=== PATIENT | male | born 1955 | race Caucasian/White ===

== ENCOUNTER 2017-02-17 09:48 | Inpatient (IN) | payer OTHER ==
[2017-02-17 10:56] VITALS: BMI 27.7
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
[2017-02-17] MEDS ORDERED: ACETAMINOPHEN 325 MG TABLET (FP) PO PRN (11:43)
[2017-02-17] MEDS ORDERED: MAGNESIUM HYDROX 2400MG/30ML ORAL SUSPENSION 30 ML CUP PO PRN (11:43)
[2017-02-17] MEDS ORDERED: hydrOXYzine PAMOATE 25 MG CAPSULE (FP) PO PRN (11:43)
[2017-02-17] MEDS ORDERED: MENTHOL/PHENOL 1 EACH UD MM PRN (11:43)
[2017-02-17] MEDS ORDERED: MAG HYDROX/AL HYDROX/SIMETH 30 ML UNIT-DOSE CUP PO PRN (11:43)
[2017-02-17] MEDS ORDERED: guaiFENesin/D-METHORPHAN HB 10 ML UNIT-DOSE CUPS PO PRN (11:43)
[2017-02-17] MEDS ORDERED: P-EPHED 60MG/TRIPROLIDI 2.5MG TABLET PO PRN (11:43)
[2017-02-17] MEDS ORDERED: diphenhydrAMINE HCL 50 MG CAPSULE PO PRN (11:43)
[2017-02-17] MEDS ORDERED: IBUPROFEN 400 MG TABLET (FP) PO PRN (11:43)
[2017-02-17] MEDS ORDERED: LOPERAMIDE HCL 2 MG CAPSULE PO PRN (11:43)
[2017-02-17] MEDS ORDERED: MAGNESIUM CITRATE 300 ML BOTTLE PO PRN (11:43)
[2017-02-17] MEDS ORDERED: chlordiazePOXIDE HCL 25 MG CAPSULE PO ONE (11:55)
[2017-02-17] MEDS ORDERED: METHADONE HCL 10 MG TABLET (FOR DETOX USE ONLY) PO ONE ×2 (11:56→23:00)
[2017-02-17] MEDS: chlordiazePOXIDE HCL 25 MG CAPSULE PO SCH ×2 (17:15→22:17)
[2017-02-17 17:34] LABS: URINE APPEARANCE CLEAR; URINE BILIRUBIN NEGATIVE (NEGATIVE); URINE BLOOD NEGATIVE (NEGATIVE); URINE COLOR DKYELLOW; URINE GLUCOSE (UA) NEGATIVE (NEGATIVE); URINE KETONE TRACE (NEGATIVE); URINE LEUK ESTERASE NEGATIVE (NEGATIVE); URINE NITRITE NEGATIVE (NEGATIVE); URINE PROTEIN NEGATIVE (NEGATIVE); URINE UROBILINOGEN 4.0 E.U/dl E.U./dl (0.2-1.0)
[2017-02-17] MEDS: chlordiazePOXIDE HCL 25 MG CAPSULE PO PRN (20:13)
[2017-02-17] MEDS: THIAMINE HCL 100 MG TABLET (FP) PO SCH (22:17)
[2017-02-18] MEDS: chlordiazePOXIDE HCL 25 MG CAPSULE PO SCH ×4 (05:36→22:13)
[2017-02-18] MEDS ORDERED: METHADONE HCL 10 MG TABLET (FOR DETOX USE ONLY) PO SCH (10:00)
[2017-02-18] MEDS: PRENATAL VITAMINS W/ FOLIC ACID TABLET (FP) PO SCH (10:03)
[2017-02-18 10:06] LABS: MCH 31.6 pg (25.7-33.7); MCHC 33.1 g/dl (32.0-35.9); MEAN CELL VOLUME 95.3 fl (80-96); MEAN PLT VOLUME 8.9 fl (7.5-11.1); PLATELET COUNT 197 K/MM3 (134-434); RDW 13.7 % (11.9-15.9)
[2017-02-18 10:29] LABS: ALBUMIN 3.6 g/dl (3.4-5.0); ALK PHOS 133 U/L (45-117); ANION GAP 13 (8-16); BILIRUBIN,TOTAL 0.8 mg/dL (0.2-1.0); CALCIUM 8.5 mg/dL (8.5-10.1); CO2 26 mmol/L (21-32); COCKROFT - GAULT 119.19; CREATININE 0.7 mg/dL (0.7-1.3); GLUCOSE,RANDOM 140 mg/dL (74-106); SGOT/AST 91 U/L (15-37); SGPT/ALT 112 U/L (12-78); TOT PROT 7.7 g/dl (6.4-8.2)
--- NOTE | 2017-02-18 11:42 | PN ---
[facility] CIWA - CIWA Score Nausea/Vomitin-No Nausea/No Vomiting Muscle Tremors: 4-Moderate,w/Arms Extend Anxiety: 4-Mod. Anxious/Guarded Agitation: 4-Moderately Restless Paroxysmal Sweats: 1-Minimal Palms Moist Orientation: 0-Oriented Tacttile Disturbances: 3-Moderate Itch/Numb/Burn Auditory Disturbances: 0-None Visual Disturbances: 0-None Headache: 0-None Present CIWA-Ar Total Score: 16 S COWS - Scale Resting Pulse: 1= [place] 81-100 Sweatin= Chills/Flushing Restless Observation: 3= Extraneous Movement Pupil Size: 2= Moderately Dilated Bone or Joint Aches: 4=Acute Joint/Muscle Pain Runny Nose/ Eye Tearin= Nasal Congestion GI Upset > 30mins: 1= Stomach Cramp Tremor Observation of Outstretched Hands: 1= Tremor [place], Not Seen Yawning Observation: 1= 1-2x During Session Anxiety or Irritability: 2=Irritable/Anxious Goose Flesh Skin: 0=Smooth Skin COWS Score: 17 [facility] Progress Note (SOAP) Subjective: ANXIETY,SWEATS,TREMORS. Objective: 02/18/17 11:43 Vital Signs Temperature 98.7 F 02/18/17 10:05 Pulse Rate 84 02/18/17 10:05 Respiratory Rate 18 02/18/17 10:05 Blood Pressure 138/73 02/18/17 10:05 O2 Sat by Pulse Oximetry (%) Laboratory Last Values WBC 5.0 K/mm3 (4.0-10.0) D 02/18/17 06:20 RBC 4.16 M/mm3 (4.00-5.60) 02/18/17 06:20 Hgb 13.1 GM/dL (11.7-16.9) 02/18/17 06:20 Hct 39.6 % (35.4-49) 02/18/17 06:20 MCV 95.3 fl (80-96) 02/18/17 06:20 MCHC 33.1 g/dl (32.0-35.9) 02/18/17 06:20 RDW 13.7 % (11.9-15.9) D 02/18/17 06:20 Plt Count 197 K/MM3 (134-434) D 02/18/17 06:20 MPV 8.9 fl (7.5-11.1) 02/18/17 06:20 Sodium 138 mmol/L (136-145) 02/18/17 06:20 Potassium 3.4 mmol/L (3.5-5.1) L 02/18/17 06:20 Chloride 99 mmol/L (98-107) 02/18/17 06:20 Carbon Dioxide 26 mmol/L (21-32) 02/18/17 06:20 Anion Gap 13 (8-16) 02/18/17 06:20 BUN 6 mg/dL (7-18) L 02/18/17 06:20 Creatinine 0.7 mg/dL (0.7-1.3) 02/18/17 06:20 Creat Clearance w eGFR > 60 (>60) 02/18/17 06:20 Random Glucose 140 mg/dL (74-106) H 02/18/17 06:20 Calcium 8.5 mg/dL (8.5-10.1) 02/18/17 06:20 Total Bilirubin 0.8 mg/dL (0.2-1.0) D 02/18/17 06:20 AST 91 U/L (15-37) H D 02/18/17 06:20 ALT 112 U/L (12-78) H D 02/18/17 06:20 Alkaline Phosphatase 133 U/L (45-117) H D 02/18/17 06:20 Total Protein 7.7 g/dl (6.4-8.2) 02/18/17 06:20 Albumin 3.6 g/dl (3.4-5.0) 02/18/17 06:20 Urine Color Dkyellow 02/17/17 13:00 Urine Appearance Clear 02/17/17 13:00 Urine pH 6.0 (5.0-8.0) 02/17/17 13:00 Ur Specific [place] 1.024 (1.001-1.035) 02/17/17 13:00 Urine Protein Negative (NEGATIVE) 02/17/17 13:00 Urine Glucose (UA) Negative (NEGATIVE) 02/17/17 13:00 Urine Ketones Trace (NEGATIVE) H 02/17/17 13:00 Urine Blood Negative (NEGATIVE) 02/17/17 13:00 Urine Nitrite Negative (NEGATIVE) 02/17/17 13:00 Urine Bilirubin Negative (NEGATIVE) 02/17/17 13:00 Urine Urobilinogen 4.0 e.u/dl E.U./dl (0.2-1.0) 02/17/17 13:00 Ur Leukocyte Esterase Negative (NEGATIVE) 02/17/17 13:00 K+= 3.4 Assessment: 02/18/17 11:43 WITHDRAWAL SX BORDERLINE HYPOKALEMIA Plan: CONTINUE DETOX KDUR DIRECTED
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
--- NOTE | 2017-02-18 12:34 | EKG ---
Test Reason : Blood Pressure : / mmHG Vent. Rate : 073 BPM Atrial Rate : 073 BPM P-R Int : 140 ms QRS Dur : 092 ms QT Int : 422 ms P-R-T Axes : 030 001 006 degrees QTc Int : 464 ms NORMAL SINUS RHYTHM WITH SINUS ARRHYTHMIA VOLTAGE CRITERIA FOR LEFT VENTRICULAR HYPERTROPHY ABNORMAL ECG NO PREVIOUS ECGS AVAILABLE Confirmed by ERNESTO BRENNAN MD ([id number]) on 02/18/2017 12:34:09 PM Referred By: Andre Hsu Confirmed By:ERNESTO BRENNAN MD
[2017-02-18] MEDS: POTASSIUM CHLORIDE TABS 20 MEQ TABLET.ER (FP) PO SCH ×2 (13:34→22:13)
[2017-02-18] MEDS: chlordiazePOXIDE HCL 25 MG CAPSULE PO PRN (13:36)
[2017-02-18] MEDS: THIAMINE HCL 100 MG TABLET (FP) PO SCH (22:13)
[2017-02-18] MEDS: QUEtiapine FUMARATE 50 MG TABLET PO SCH (22:13)
[2017-02-19] MEDS: chlordiazePOXIDE HCL 25 MG CAPSULE PO SCH ×2 (05:36→10:09)
--- NOTE | 2017-02-19 09:59 | PN ---
[facility] CIWA - CIWA Score Nausea/Vomitin-No Nausea/No Vomiting Muscle Tremors: 5 Anxiety: 4-Mod. Anxious/Guarded Agitation: 4-Moderately Restless Paroxysmal Sweats: 1-Minimal Palms Moist Orientation: 0-Oriented Tacttile Disturbances: 3-Moderate Itch/Numb/Burn Auditory Disturbances: 0-None Visual Disturbances: 0-None Headache: 0-None Present CIWA-Ar Total Score: 17 B[facility] Progress Note (SOAP) Subjective: ANXIETY,TREMORS,SWEATS,FATIGUE Objective: 02/19/17 09:58 Vital Signs Temperature 95.6 F L 02/19/17 09:24 Pulse Rate 79 02/19/17 09:24 Respiratory Rate 18 02/19/17 09:24 Blood Pressure 149/90 02/19/17 09:24 O2 Sat by Pulse Oximetry (%) Laboratory Last Values WBC 5.0 K/mm3 (4.0-10.0) D 02/18/17 06:20 RBC 4.16 M/mm3 (4.00-5.60) 02/18/17 06:20 Hgb 13.1 GM/dL (11.7-16.9) 02/18/17 06:20 Hct 39.6 % (35.4-49) 02/18/17 06:20 MCV 95.3 fl (80-96) 02/18/17 06:20 MCHC 33.1 g/dl (32.0-35.9) 02/18/17 06:20 RDW 13.7 % (11.9-15.9) D 02/18/17 06:20 Plt Count 197 K/MM3 (134-434) D 02/18/17 06:20 MPV 8.9 fl (7.5-11.1) 02/18/17 06:20 Sodium 138 mmol/L (136-145) 02/18/17 06:20 Potassium 3.4 mmol/L (3.5-5.1) L 02/18/17 06:20 Chloride 99 mmol/L (98-107) 02/18/17 06:20 Carbon Dioxide 26 mmol/L (21-32) 02/18/17 06:20 Anion Gap 13 (8-16) 02/18/17 06:20 BUN 6 mg/dL (7-18) L 02/18/17 06:20 Creatinine 0.7 mg/dL (0.7-1.3) 02/18/17 06:20 Creat Clearance w eGFR > 60 (>60) 02/18/17 06:20 Random Glucose 140 mg/dL (74-106) H 02/18/17 06:20 Calcium 8.5 mg/dL (8.5-10.1) 02/18/17 06:20 Total Bilirubin 0.8 mg/dL (0.2-1.0) D 02/18/17 06:20 AST 91 U/L (15-37) H D 02/18/17 06:20 ALT 112 U/L (12-78) H D 02/18/17 06:20 Alkaline Phosphatase 133 U/L (45-117) H D 02/18/17 06:20 Total Protein 7.7 g/dl (6.4-8.2) 02/18/17 06:20 Albumin 3.6 g/dl (3.4-5.0) 02/18/17 06:20 Urine Color Dkyellow 02/17/17 13:00 Urine Appearance Clear 02/17/17 13:00 Urine pH 6.0 (5.0-8.0) 02/17/17 13:00 Ur Specific [place] 1.024 (1.001-1.035) 02/17/17 13:00 Urine Protein Negative (NEGATIVE) 02/17/17 13:00 Urine Glucose (UA) Negative (NEGATIVE) 02/17/17 13:00 Urine Ketones Trace (NEGATIVE) H 02/17/17 13:00 Urine Blood Negative (NEGATIVE) 02/17/17 13:00 Urine Nitrite Negative (NEGATIVE) 02/17/17 13:00 Urine Bilirubin Negative (NEGATIVE) 02/17/17 13:00 Urine Urobilinogen 4.0 e.u/dl E.U./dl (0.2-1.0) 02/17/17 13:00 Ur Leukocyte Esterase Negative (NEGATIVE) 02/17/17 13:00 RPR Titer Nonreactive (NONREACTIVE) 02/18/17 06:20 Assessment: 02/19/17 09:58 WITHDRAWAL SX Plan: CONTINUE DETOX
[2017-02-19] MEDS: PRENATAL VITAMINS W/ FOLIC ACID TABLET (FP) PO SCH (10:09)
[2017-02-19] MEDS: POTASSIUM CHLORIDE TABS 20 MEQ TABLET.ER (FP) PO SCH ×2 (10:09→22:11)
[2017-02-19] MEDS: METHADONE HCL 5 MG TABLET (FOR DETOX USE ONLY) PO SCH (10:09)
[2017-02-19] MEDS: chlordiazePOXIDE HCL 25 MG CAPSULE PO PRN (11:57)
[2017-02-19] MEDS: chlordiazePOXIDE 5 MG CAPSULE PO SCH ×2 (17:53→22:10)
[2017-02-19] MEDS: THIAMINE HCL 100 MG TABLET (FP) PO SCH (22:10)
[2017-02-19] MEDS: QUEtiapine FUMARATE 50 MG TABLET PO SCH (22:11)
[2017-02-20] MEDS: chlordiazePOXIDE 5 MG CAPSULE PO SCH ×2 (05:26→10:09)
[2017-02-20] MEDS: METHADONE HCL 5 MG TABLET (FOR DETOX USE ONLY) PO SCH (10:05)
[2017-02-20] MEDS: POTASSIUM CHLORIDE TABS 20 MEQ TABLET.ER (FP) PO SCH ×2 (10:08→22:12)
[2017-02-20] MEDS: PRENATAL VITAMINS W/ FOLIC ACID TABLET (FP) PO SCH (10:08)
--- NOTE | 2017-02-20 13:24 | PN ---
[facility] Progress Note (SOAP) Subjective: Sweating,interrupted sleep,restless. Objective: 02/20/17 13:23 Vital Signs - 8 hr 02/20/17 02/20/17 06:43 10:33 Temperature 97.3 F L 97.1 F L Pulse Rate 72 90 Respiratory 18 18 Rate Blood Pressure 158/94 123/81 Laboratory Tests 02/17/17 02/18/17 02/18/17 13:00 06:20 06:20 WBC 5.0 D RBC 4.16 Hgb 13.1 Hct 39.6 MCV 95.3 MCHC 33.1 RDW 13.7 D Plt Count 197 D MPV 8.9 Sodium 138 Potassium 3.4 L Chloride 99 Carbon Dioxide 26 Anion Gap 13 BUN 6 L Creatinine 0.7 Creat Clearance w eGFR > 60 Random Glucose 140 H Calcium 8.5 Total Bilirubin 0.8 D AST 91 H D ALT 112 H D Alkaline Phosphatase 133 H D Total Protein 7.7 Albumin 3.6 Urine Color Dkyellow Urine Appearance Clear Urine pH 6.0 Ur Specific [place] 1.024 Urine Protein Negative Urine Glucose (UA) Negative Urine Ketones Trace H Urine Blood Negative Urine Nitrite Negative Urine Bilirubin Negative Urine Urobilinogen 4.0 e.u/dl Ur Leukocyte Esterase Negative RPR Titer 02/18/17 06:20 WBC RBC Hgb Hct MCV MCHC RDW Plt Count MPV Sodium Potassium Chloride Carbon Dioxide Anion Gap BUN Creatinine Creat Clearance w eGFR Random Glucose Calcium Total Bilirubin AST ALT Alkaline Phosphatase Total Protein Albumin Urine Color Urine Appearance Urine pH Ur Specific [place] Urine Protein Urine Glucose (UA) Urine Ketones Urine Blood Urine Nitrite Urine Bilirubin Urine Urobilinogen Ur Leukocyte Esterase RPR Titer Nonreactive labs noted,on k-dur Assessment: 02/20/17 13:24 Withdrawal sx. Plan: Continue detox
[2017-02-20] MEDS: chlordiazePOXIDE HCL 10 MG CAPSULE PO SCH ×2 (17:49→22:12)
[2017-02-20] MEDS: THIAMINE HCL 100 MG TABLET (FP) PO SCH (22:12)
[2017-02-20] MEDS: QUEtiapine FUMARATE 50 MG TABLET PO SCH (22:12)
[2017-02-21] MEDS: chlordiazePOXIDE HCL 10 MG CAPSULE PO SCH ×2 (05:33→10:12)
[2017-02-21] MEDS ORDERED: METHADONE HCL 10 MG TABLET (FOR DETOX USE ONLY) PO SCH (10:00)
[2017-02-21] MEDS: POTASSIUM CHLORIDE TABS 20 MEQ TABLET.ER (FP) PO SCH ×2 (10:11→22:16)
[2017-02-21] MEDS: PRENATAL VITAMINS W/ FOLIC ACID TABLET (FP) PO SCH (10:11)
[2017-02-21] MEDS ORDERED: POTASSIUM CHLORIDE TABS 20 MEQ TABLET.ER (FP) PO ONE ×2 (16:49→19:00)
--- NOTE | 2017-02-21 16:49 | PN ---
[facility] Progress Note (SOAP) Subjective: Interrupted sleep, Body Aches, Sweating, Tremors. Objective: PT. A & O X 3. 02/21/17 16:47 Vital Signs Temperature 96.5 F L 02/21/17 11:34 Pulse Rate 92 H 02/21/17 11:34 Respiratory Rate 19 02/21/17 11:34 Blood Pressure 125/77 02/21/17 11:34 O2 Sat by Pulse Oximetry (%) Laboratory Last Values WBC 5.0 K/mm3 (4.0-10.0) D 02/18/17 06:20 RBC 4.16 M/mm3 (4.00-5.60) 02/18/17 06:20 Hgb 13.1 GM/dL (11.7-16.9) 02/18/17 06:20 Hct 39.6 % (35.4-49) 02/18/17 06:20 MCV 95.3 fl (80-96) 02/18/17 06:20 MCHC 33.1 g/dl (32.0-35.9) 02/18/17 06:20 RDW 13.7 % (11.9-15.9) D 02/18/17 06:20 Plt Count 197 K/MM3 (134-434) D 02/18/17 06:20 MPV 8.9 fl (7.5-11.1) 02/18/17 06:20 Sodium 138 mmol/L (136-145) 02/18/17 06:20 Potassium 3.4 mmol/L (3.5-5.1) L 02/18/17 06:20 Chloride 99 mmol/L (98-107) 02/18/17 06:20 Carbon Dioxide 26 mmol/L (21-32) 02/18/17 06:20 Anion Gap 13 (8-16) 02/18/17 06:20 BUN 6 mg/dL (7-18) L 02/18/17 06:20 Creatinine 0.7 mg/dL (0.7-1.3) 02/18/17 06:20 Creat Clearance w eGFR > 60 (>60) 02/18/17 06:20 Random Glucose 140 mg/dL (74-106) H 02/18/17 06:20 Calcium 8.5 mg/dL (8.5-10.1) 02/18/17 06:20 Total Bilirubin 0.8 mg/dL (0.2-1.0) D 02/18/17 06:20 AST 91 U/L (15-37) H D 02/18/17 06:20 ALT 112 U/L (12-78) H D 02/18/17 06:20 Alkaline Phosphatase 133 U/L (45-117) H D 02/18/17 06:20 Total Protein 7.7 g/dl (6.4-8.2) 02/18/17 06:20 Albumin 3.6 g/dl (3.4-5.0) 02/18/17 06:20 Urine Color Dkyellow 02/17/17 13:00 Urine Appearance Clear 02/17/17 13:00 Urine pH 6.0 (5.0-8.0) 02/17/17 13:00 Ur Specific [place] 1.024 (1.001-1.035) 02/17/17 13:00 Urine Protein Negative (NEGATIVE) 02/17/17 13:00 Urine Glucose (UA) Negative (NEGATIVE) 02/17/17 13:00 Urine Ketones Trace (NEGATIVE) H 02/17/17 13:00 Urine Blood Negative (NEGATIVE) 02/17/17 13:00 Urine Nitrite Negative (NEGATIVE) 02/17/17 13:00 Urine Bilirubin Negative (NEGATIVE) 02/17/17 13:00 Urine Urobilinogen 4.0 e.u/dl E.U./dl (0.2-1.0) 02/17/17 13:00 Ur Leukocyte Esterase Negative (NEGATIVE) 02/17/17 13:00 RPR Titer Nonreactive (NONREACTIVE) 02/18/17 06:20 LABS NOTED. 02/21/17 16:48 Assessment: 02/21/17 16:48 WITHDRAWAL SYMPTOMS. Plan: CONTINUE DETOX. K, 40 MEQ X 1, THEN FOLLOWED BY 20 MEQ BID. ADVISED PATIENT TO FOLLOW-UP WITH [facility] / REHAB MEDICAL PROVIDER AFTER DISCHARGE FROM DETOX FOR GENERAL MEDICAL ASSESSMENT AND FOR ABNORMAL ADMISSION LAB VALUES.
[2017-02-21] MEDS: THIAMINE HCL 100 MG TABLET (FP) PO SCH (22:16)
[2017-02-21] MEDS: QUEtiapine FUMARATE 50 MG TABLET PO SCH (22:16)
[2017-02-22] MEDS ORDERED: METHADONE HCL 5 MG TABLET (FOR DETOX USE ONLY) PO SCH (06:00)
[2017-02-22 06:16] VITALS: BP 119/71; PULSE 74; TEMP 96.1
--- NOTE | 2017-02-22 08:55 | PN ---
[facility] Progress Note (SOAP) Subjective: no complaints Objective: 02/22/17 08:54 Vital Signs - 8 hr 02/22/17 02/22/17 03:30 06:16 Temperature 96.1 F L Pulse Rate 74 Respiratory 18 16 Rate Blood Pressure 119/71 Laboratory Tests 02/17/17 02/18/17 02/18/17 13:00 06:20 06:20 WBC 5.0 D RBC 4.16 Hgb 13.1 Hct 39.6 MCV 95.3 MCHC 33.1 RDW 13.7 D Plt Count 197 D MPV 8.9 Sodium 138 Potassium 3.4 L Chloride 99 Carbon Dioxide 26 Anion Gap 13 BUN 6 L Creatinine 0.7 Creat Clearance w eGFR > 60 Random Glucose 140 H Calcium 8.5 Total Bilirubin 0.8 D AST 91 H D ALT 112 H D Alkaline Phosphatase 133 H D Total Protein 7.7 Albumin 3.6 Urine Color Dkyellow Urine Appearance Clear Urine pH 6.0 Ur Specific [place] 1.024 Urine Protein Negative Urine Glucose (UA) Negative Urine Ketones Trace H Urine Blood Negative Urine Nitrite Negative Urine Bilirubin Negative Urine Urobilinogen 4.0 e.u/dl Ur Leukocyte Esterase Negative RPR Titer 02/18/17 06:20 WBC RBC Hgb Hct MCV MCHC RDW Plt Count MPV Sodium Potassium Chloride Carbon Dioxide Anion Gap BUN Creatinine Creat Clearance w eGFR Random Glucose Calcium Total Bilirubin AST ALT Alkaline Phosphatase Total Protein Albumin Urine Color Urine Appearance Urine pH Ur Specific [place] Urine Protein Urine Glucose (UA) Urine Ketones Urine Blood Urine Nitrite Urine Bilirubin Urine Urobilinogen Ur Leukocyte Esterase RPR Titer Nonreactive Assessment: 02/22/17 08:54 completed detox, potassium supplemented Plan: d/c today, f/u PCP for primary care, check u/a as outpatient dietary advice re: eating banannas encorouged to maintain k
--- NOTE | 2017-02-22 08:57 | DS ---
[facility] Detox Discharge Summary Admission Date: 02/17/17 Discharge Date: 02/22/17 - History Present History: Alcohol Dependence, Opioid Dependence Pertinent Past History: Hep C, anxiety, insomnia, depression, - Physical Exam Results Vital Signs: Vital Signs Temperature 96.1 F L 02/22/17 06:16 Pulse Rate 74 02/22/17 06:16 Respiratory Rate 16 02/22/17 06:16 Blood Pressure 119/71 02/22/17 06:16 O2 Sat by Pulse Oximetry (%) Pertinent Admission Physical Exam Findings: withdrawal sx noted - Treatment Hospital Course: Detox Protocol Followed, Detoxed Safely, Responded well, Discharged Condition Good, Rehab Referral Accepted Patient has Accepted a Rehab Referral to: Yes - Medication Discharge Medications: Ambulatory Orders NK [No Known Home Medication] 02/17/17 - Diagnosis (1) Alcohol dependence with uncomplicated withdrawal Current Visit: Yes Status: Chronic (2) Cocaine abuse Current Visit: Yes Status: Acute (3) Drug-induced mood disorder Current Visit: Yes Status: Acute (4) Opioid dependence with withdrawal Current Visit: Yes Status: Chronic (5) Arthritis Current Visit: Yes Status: Chronic (6) Bipolar disorder Current Visit: Yes Status: Chronic (7) Hepatitis C Current Visit: Yes Status: Chronic - AMA Did Patient Leave Against Medical Advice: No
[2017-02-22] MEDS: PRENATAL VITAMINS W/ FOLIC ACID TABLET (FP) PO SCH (09:23)
[2017-02-22] MEDS: POTASSIUM CHLORIDE TABS 20 MEQ TABLET.ER (FP) PO SCH (09:24)
== END 2017-02-22 09:25 | disposition home or self-care (01) | DRG 897 ==
LOC: YASAS 09:48 → Y3N 11:42
PROVIDERS: ADMIT Internal Medicine; ATTEND Internal Medicine
PROC: HZ2ZZZZ Detoxification Services for Substance Abuse Treatment (ICD-10-PCS; principal; 2017-02-17)
DX: F11.23 Opioid dependence with withdrawal (principal); F10.230 Alcohol dependence with withdrawal, uncomplicated; F14.10 Cocaine abuse, uncomplicated; F17.210 Nicotine dependence, cigarettes, uncomplicated; F41.8 Other specified anxiety disorders; F31.9 Bipolar disorder, unspecified; M19.90 Unspecified osteoarthritis, unspecified site; B18.2 Chronic viral hepatitis C; E87.6 Hypokalemia; Z86.69 Personal history of other diseases of the nervous system and sense organs; Z86.79 Personal history of other diseases of the circulatory system
CPT/HCPCS: 36415; 80053; 81003; 85027; 86593; 93005; 93010

== ENCOUNTER 2021-06-14 14:40 | Inpatient (IN) | payer OTHER ==
[2021-06-14 19:49] VITALS: BMI 26.3
[2021-06-15] MEDS ORDERED: MENTHOL/PHENOL 1 EACH UD MM PRN (00:33)
[2021-06-15] MEDS ORDERED: MAG HYDROX/AL HYDROX/SIMETH 30 ML UNIT-DOSE CUP PO PRN (00:33)
[2021-06-15] MEDS ORDERED: ONDANSETRON *ODT* 4 MG TABLET SL PRN (00:33)
[2021-06-15] MEDS ORDERED: BISMUTH SUBSALICYLATE 524 MG/30 ML PO PRN (00:33)
[2021-06-15] MEDS ORDERED: ACETAMINOPHEN 325 MG TABLET (FP) PO PRN ×2 (00:33)
[2021-06-15] MEDS ORDERED: IBUPROFEN 400 MG TABLET (FP) PO PRN (00:33)
[2021-06-15] MEDS ORDERED: LORazepam 1 MG TABLET PO PRN (00:33)
[2021-06-15] MEDS ORDERED: MAGNESIUM CITRATE 300 ML BOTTLE PO PRN (00:33)
[2021-06-15] MEDS ORDERED: MAGNESIUM HYDROX 2400MG/30ML ORAL SUSPENSION 30 ML CUP PO PRN (00:33)
[2021-06-15] MEDS ORDERED: METHOCARBAMOL 500 MG TABLET PO PRN (00:33)
[2021-06-15] MEDS ORDERED: methaDONE HCL 10 MG TABLET (FOR DETOX USE ONLY) PO ONE (00:37)
[2021-06-15] MEDS ORDERED: cloNIDine HCL 0.1 MG TABLET PO PRN (00:37)
[2021-06-15] MEDS: LORazepam 2 MG TABLET PO SCH ×4 (05:29→22:27)
[2021-06-15] MEDS: PRENATAL VITAMINS W/ FOLIC ACID TABLET (FP) PO SCH (10:23)
[2021-06-15] MEDS: MELATONIN 5 MG TABLETS PO SCH (22:28)
[2021-06-15] MEDS: THIAMINE HCL 100 MG TABLET (FP) PO SCH (22:28)
[2021-06-16] MEDS: LORazepam 1 MG TABLET PO SCH ×4 (06:16→22:15)
[2021-06-16] MEDS ORDERED: methaDONE HCL 10 MG TABLET (FOR DETOX USE ONLY) ONE (08:54)
[2021-06-16 10:21] LABS: ALBUMIN 2.7 g/dl (3.4-5.0)
[2021-06-16 10:22] LABS: HEMATOCRIT 36.3 % (35.4-49); HEMOGLOBIN 12.7 GM/dL (11.7-16.9); MCH 31.9 pg (25.7-33.7); MEAN CELL VOLUME 91.4 fl (80-96); PLATELET COUNT 255 10^3/uL (134-434); RBC 3.97 M/mm3 (4.00-5.60); RDW 14.3 % (11.9-15.9); WHITE BLOOD COUNT 6.1 K/mm3 (4.0-10.0)
[2021-06-16 10:24] LABS: CREATININE 0.6 mg/dL (0.55-1.3)
[2021-06-16 10:26] LABS: BILIRUBIN,TOTAL 0.5 mg/dL (0.2-1); TOT PROT 6.6 g/dl (6.4-8.2)
[2021-06-16] MEDS: PRENATAL VITAMINS W/ FOLIC ACID TABLET (FP) PO SCH (10:49)
[2021-06-16] MEDS: MELATONIN 5 MG TABLETS PO SCH (22:15)
[2021-06-16] MEDS: THIAMINE HCL 100 MG TABLET (FP) PO SCH (22:15)
[2021-06-17] MEDS ORDERED: LORazepam 0.5 MG TABLET PO PRN
[2021-06-17] MEDS: LORazepam 0.5 MG TABLET PO SCH ×4 (05:58→22:26)
[2021-06-17] MEDS ORDERED: methaDONE HCL 10 MG TABLET (FOR DETOX USE ONLY) PO ONE (10:00)
[2021-06-17] MEDS: PRENATAL VITAMINS W/ FOLIC ACID TABLET (FP) PO SCH (10:20)
[2021-06-17] MEDS: THIAMINE HCL 100 MG TABLET (FP) PO SCH (22:26)
[2021-06-17] MEDS: MELATONIN 5 MG TABLETS PO SCH (22:26)
[2021-06-18] MEDS ORDERED: LORazepam 0.5 MG TABLET PO ONE (05:00)
[2021-06-18] MEDS ORDERED: methaDONE HCL 10 MG TABLET (FOR DETOX USE ONLY) ONE (09:29)
[2021-06-18] MEDS: PRENATAL VITAMINS W/ FOLIC ACID TABLET (FP) PO SCH (10:05)
[2021-06-18] MEDS: THIAMINE HCL 100 MG TABLET (FP) PO SCH (22:16)
[2021-06-18] MEDS: MELATONIN 5 MG TABLETS PO SCH (22:16)
[2021-06-19] MEDS ORDERED: methaDONE HCL 10 MG TABLET (FOR DETOX USE ONLY) PO ONE (10:00)
[2021-06-19] MEDS: PRENATAL VITAMINS W/ FOLIC ACID TABLET (FP) PO SCH (10:06)
[2021-06-19] MEDS: MELATONIN 5 MG TABLETS PO SCH (22:13)
[2021-06-19] MEDS: THIAMINE HCL 100 MG TABLET (FP) PO SCH (22:13)
[2021-06-20] MEDS: PRENATAL VITAMINS W/ FOLIC ACID TABLET (FP) PO SCH (10:20)
[2021-06-20 13:21] VITALS: BP 141/81; PULSE 80; TEMP 96.6
== END 2021-06-20 13:38 | disposition home or self-care (01) | DRG 897 ==
LOC: YASAS 14:40 → Y3N 22:43
PROVIDERS: ADMIT Allergy & Immunology; ATTEND Allergy & Immunology
PROC: HZ2ZZZZ Detoxification Services for Substance Abuse Treatment (ICD-10-PCS; principal; 2021-06-14)
DX: F11.23 Opioid dependence with withdrawal (principal); F10.230 Alcohol dependence with withdrawal, uncomplicated; F14.10 Cocaine abuse, uncomplicated; F31.9 Bipolar disorder, unspecified; F19.24 Other psychoactive substance dependence with psychoactive substance-induced mood disorder; M19.90 Unspecified osteoarthritis, unspecified site; R73.9 Hyperglycemia, unspecified; K74.60 Unspecified cirrhosis of liver; R00.0 Tachycardia, unspecified; Z88.0 Allergy status to penicillin; Z86.19 Personal history of other infectious and parasitic diseases; Z86.69 Personal history of other diseases of the nervous system and sense organs; Z56.0 Unemployment, unspecified
CPT/HCPCS: 36415; 80053; 82962; 85027; 86780; 93005; 93010; C9803; U0003; U0005